=== PATIENT | male | born 1960 | race Caucasian/White ===

== ENCOUNTER 2019-04-16 15:19 | Outpatient (REF) | payer BC, SELFPAY ==
[2019-04-16 21:11] LABS: Anion Gap 10.4 mmol/L (3-11); BUN 16 mg/dL (7-18); CO2 28.6 mmol/L (21.0-32.0); CREATININE 1.06 mg/dL (0.70-1.30); Calcium 9.1 mg/dL (8.5-10.1); Chloride 105 mmol/L (98-107); Glucose 146 mg/dL (70-100); Potassium 4.4 mmol/L (3.5-5.1); Sodium 144 mmol/L (136-145)
== END 2019-04-16 15:39 ==
LOC: NCHCN 15:19
PROVIDERS: PCP Registered Nurse; Visit Provider Registered Nurse
DX: I10 Essential (primary) hypertension (principal)
CPT/HCPCS: 80048

== ENCOUNTER 2019-05-07 13:12 | Outpatient (REF) | payer BC, SELFPAY ==
[2019-05-07 23:29] LABS: BUN 18 mg/dL (7-18); CREATININE 1.19 mg/dL (0.70-1.30); Calcium 9.4 mg/dL (8.5-10.1); Chloride 102 mmol/L (98-107); Glucose 107 mg/dL (70-100); Potassium 4.1 mmol/L (3.5-5.1); Sodium 140 mmol/L (136-145)
[2019-05-07 23:43] LABS: Hemoglobin A1C 6.1 % (4.5-6.2)
== END 2019-05-07 13:32 ==
LOC: NCHCN 13:12
PROVIDERS: PCP Registered Nurse; Visit Provider Registered Nurse
DX: I10 Essential (primary) hypertension (principal); R73.03 Prediabetes
CPT/HCPCS: 80048; 83036

== ENCOUNTER 2020-08-15 13:30 | Outpatient (REF) | payer BC, SELFPAY ==
[2020-08-15 21:22] LABS: Anion Gap 5.3 mmol/L (3-11); BUN 18 mg/dL (7-18); CO2 27.7 mmol/L (21.0-32.0); CREATININE 1.05 mg/dL (0.70-1.30); Calcium 9.2 mg/dL (8.5-10.1); Chloride 100 mmol/L (98-107); Glucose 108 mg/dL (74-106); Sodium 133 mmol/L (136-145)
== END 2020-08-15 13:50 ==
LOC: NCHCN 13:30
PROVIDERS: PCP Registered Nurse; Visit Provider Registered Nurse
DX: I10 Essential (primary) hypertension (principal)
CPT/HCPCS: 80048

== ENCOUNTER 2020-08-27 11:17 | Outpatient (REF) | payer BC, SELFPAY ==
[2020-08-27 22:25] LABS: Sodium 138 mmol/L (136-145)
== END 2020-08-27 11:37 ==
LOC: NCHCN 11:17
PROVIDERS: PCP Registered Nurse; Visit Provider Registered Nurse
DX: E87.1 Hypo-osmolality and hyponatremia (principal)
CPT/HCPCS: 84295

== ENCOUNTER 2020-11-25 03:05 | Outpatient (CLI) | payer BC, SELFPAY ==
[2020-11-26 12:31] LABS: COVID-19 RT-PCR UVMMC Result Negative (Negative)
== END 2020-11-25 03:25 ==
PROVIDERS: PCP Registered Nurse; Visit Provider Surgery
DX: Z11.52 Encounter for screening for COVID-19 (principal); Z01.818 Encounter for other preprocedural examination
CPT/HCPCS: U0003

== ENCOUNTER 2020-11-28 06:12 | Day surgery (SDC) | payer BC, SELFPAY ==
[2020-11-28 06:18] VITALS: BP 148/97; PULSE 73; RESP 16; TEMP 36.2; O2SAT 99
[2020-11-28] MEDS: Lactated Ringers 1,000 ML 80 ML IV (06:37)
--- NOTE | 2020-11-28 08:13 | W.PM.DSUDISC ---
Discharge Plan Disposition Patient Disposition: HOME Condition: Good Discharge Details Reason For Visit: colon scope Attending Provider: Claudia Singh Primary Care Provider: DONNIE SIMPSON Home Meds and New Rx's Prescriptions: Continued lisinopril-hydrochlorothiazide 20-12.5 mg tablet 2 tab PO DAILY RF: 0 atorvastatin 20 mg tablet 20 mg PO QHS RF: 0 sildenafil 100 mg tablet 100 mg PO DAILY PRNRF: 0 Discontinued polyethylene glycol 3350 17 gram/dose powder 238 g PO ONCE Qty: 238 RF: 0 bisacodyl [Dulcolax (bisacodyl)] 5 mg tablet,delayed release (DR/EC) 5 mg PO ONCE Qty: 4 RF: 0 Discharge Instructions Additional Instructions: Findings: Colonoscopy today was normal. Follow up: Repeat colonoscopy in 2030, Unless you are having unexplained weight loss, and persistent abdominal pain or rectal bleeding that lasts for more than 2 weeks. Of course she should continue to have a yearly physical and rectal exam. Call if you develop: fevers >101.5 Nausea or Vomiting Abdominal pain that is not transient DAY SURGERY UNIT POST COLONOSCOPY INSTRUCTIONS 1. Because there will be medication in your system for the next 24 hours, you may feel a little sleepy. Your coordination will be affected. Therefore: a. Do not drive or operate dangerous equipment for 24 hours. b. Do not drink alcohol beverages for 24 hours (not even beer). c. Plan to go home and rest for the day. 2. Generally there are no restrictions on your activity after a day or so has gone by, but you may feel a bit fatigued for a few days. 3 After you arrive home you may have a light meal and return to a normal diet as you can tolerate it without feeling sick to your stomach. 4. After surgery, you may feel pain or discomfort. This should be only transient, but if it persists please contact your doctor. 5. If there are any questions regarding the findings of your procedure, please feel free to contact your doctor. 6. If you are unable to contact your doctor with a problem, contact the hospital at [phone]. 7. Continue all your regular medications unless directed otherwise. I understand the above instructions and have no questions. Signature of Patient or Responsible Adult Escort Date/Time Name of Responsible Adult Escort Signature of Nurse Date/Time Activity:: No lifting over 20 pounds or strenuous activity x24 hours Diet:: Small light meals x24 hours Discharge Orders Discharge Orders: Discharge Order (Routine); Ordered 11/28/20 Ordered By: Claudia Singh DS: Diagnosis Discharge Diagnosis (1) Memory deficit: Status: Acute
--- NOTE | 2020-11-28 08:17 | W.COLOREPORT ---
Date of service: 11/28/20 Time of Service: 08:17 Colonoscopy Report Date of procedure: 11/28/20 Pre-op diagnosis general: CRC screen Post-op diagnosis procedure note: other (normal. repeat in 2030 ) Surgeon: Claudia Singh Anesthesia proc note operative: GETA Estimated blood loss (mL): 0 Complications: None Disposition: PACU Prep: Miralax/Dulcolax Retraction Time: 8 mins Procedure Description: After informed consent was obtained the patient was taken to the procedure room and placed in a left decubitous position. Monitors were applied and a time out was done. The patients name, date of , procedure, allergies to medications and metal in their body was reviewed. The patient was then sedated. Once sedated and comfortable a rectal exam was done. External exam was normal. Internal exam revealed a normal sphincter tone and no palpable masses. The prostate enlarged. The scope was then introduced and retrofelexed. No internal hemorrhoids were identified. The scope was then advanced to the cecum w/ out difficulty. The TI and appendiceal orifice were identified. The prep was good. The scope was then slowly retracted over 8 minutes back into the rectum. There are no polyps, AVMs, diverticula apparent. He does have a few areas varicosities. There is no signs of bleeding. The mucosa is pink and healthy. The scope was removed and the patient was woken up and taken back to Same day surgery in stable condition. The patient tolerated the procedure well and there were no immediate complications. Follow up: The patient should follow up in 10 years unless they develop changes in bowel habits or other new gastrointestinal complaints.
[2020-11-28 08:43] VITALS: BP 105/60; PULSE 73; RESP 18; TEMP 36.7; O2SAT 96
== END 2020-11-28 08:46 | disposition home or self-care (01) ==
PROVIDERS: PCP Registered Nurse; Visit Provider Surgery
PROC: 0DJD8ZZ Inspection of Lower Intestinal Tract, Via Natural or Artificial Opening Endoscopic (ICD-10-PCS; CPT 45378; principal; 2020-11-28 07:30)
DX: Z12.11 Encounter for screening for malignant neoplasm of colon (principal); N40.0 Benign prostatic hyperplasia without lower urinary tract symptoms; G47.33 Obstructive sleep apnea (adult) (pediatric)
CPT/HCPCS: 45378; J2001

== ENCOUNTER 2021-06-19 10:50 | Outpatient (REF) | payer BC, SELFPAY ==
--- OUTSIDE RECORDS SUMMARY | 2021-06-19 10:54 | XMS_ITS ---
:1960 Author Care Team Providers Name Role Phone [facility] Primary Care Provider [phone] DONNIE SIMPSON [facility] Primary Care Provider [phone] Allergies Code Code System Name Reaction Severity Status Onset NKDA ? Medications Name Status Start Date Stop Date ? ? atorvastatin 20 mg tablet Active ? Not av ailable Take 1 tablet every day by oral route. lisinopril 10 mg-hydrochlorothiazide 12.5 mg tablet Active ? Not available Take 1 tablet every day by oral route. nicotine 4 mg gum Active ? Not available Chew 1 piece of gum every 2 hours by oral route. sildenafil 100 mg tablet Active ? Not miguel angel ilable Take 1 tablet every day by oral route. triamcinolone 0.1 % topical ointment and Active ? Not available dimethicone 5 % topical cream Problems Name Status Onset Date Source ? Herpesviral Vesicular Dermatitis Active ? 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 History Shoulder Rosanne Type IIa Hyperlipoproteinemia Active ? History Obesity Active ? History Depressive Disorder Active ? History Obstructive Sleep Apnea Syndrome Active ? History Hypertensive Disorder Active ? History Knee Pain Active ? History Hyperglycemia Active ? History Family History of Prostate Cancer Active ? History Inflammatory Dermatosis Active ? History Acquired Right Hallux Rigidus Active ? Hi story Procedures Date Name Performed by ? ? Tonsillectomy Information not avai lable Results Lab Results None recorded. Past Encounters 01/21/2021 Obstructive Sleep Apnea Syndrome Tea [employer]: [address] [place] [phone], Ph. 01/28/2020 Obstructive Sleep Apnea Syndrome Tea Graham [employer] ANALYST: [address] [place] [phone], Ph. Social History Tobacco Smoking Status Former Smoker (1 pack per a day) No katherine: quit 2018 Vaccine List None recorded. Plan of Care Reminders Provider Appointments None ? ? recorded. Lab None ? ? recorded. Referral None ? ? recorded. Procedures None ? ? recorded. Surgeries None ? ? recorded. Imaging None ? ? recorded. Vitals 01/21/2021 09:30AM Office 15 Height Weight BMI Blood Pressure 170.18 cm 94.8 kg 32.7 kg/m2 135/79 mm[Hg] 01/28/2020 01:45PM Office 15 Height Weight BMI 170.18 cm 95.25 kg 32.9 kg/m2 06/02/2017 Height Weight Blood Pressure 170.18 cm 95.93 kg 131/87 mm[Hg]
[2021-06-19 16:27] LABS: Calculated LDL 179 mg/dL (<100); Cholesterol 248 mg/dL (<200); HDL Cholesterol 49 mg/dL (40-60); Triglyceride 100 mg/dL (<150)
[2021-06-19 22:23] LABS: PSA, Screening 0.6 ng/mL (0.0-4.5)
[2021-06-22 10:38] LABS: Hepatitis C Ab w Rflx HCV PCR Negative (Negative)
== END 2021-06-19 10:51 | disposition home or self-care (01) ==
LOC: NCHCN 10:50
PROVIDERS: PCP Registered Nurse; Visit Provider Registered Nurse
DX: Z00.00 Encounter for general adult medical examination without abnormal findings (principal); Z11.59 Encounter for screening for other viral diseases; Z13.220 Encounter for screening for lipoid disorders; Z12.5 Encounter for screening for malignant neoplasm of prostate; Z80.42 Family history of malignant neoplasm of prostate
CPT/HCPCS: 80061; 84153; 86803